=== PATIENT | male | born 1980 | race Caucasian/White ===

== ENCOUNTER 2016-05-05 15:00 | Outpatient (RCR) | payer MEDICAID | END 2016-05-06 | LOC: M OUTALCOH 15:00 | PROVIDERS: ATTEND Psychiatry & Neurology Psychiatry | DX: F11.20 Opioid dependence, uncomplicated (principal); F11.10 Opioid abuse, uncomplicated; F12.10 Cannabis abuse, uncomplicated ==

== ENCOUNTER → 2016-06-03 | Outpatient (RCR) | payer MEDICAID | LOC: M OUTALCOH 05-12 11:22 | PROVIDERS: ATTEND Psychiatry & Neurology Psychiatry | DX: F11.20 Opioid dependence, uncomplicated (principal); F11.10 Opioid abuse, uncomplicated; F12.10 Cannabis abuse, uncomplicated ==

== ENCOUNTER → 2016-06-04 | Outpatient (REF) | payer MEDICAID, OTHER | LOC: M SFHCPLAZ 10:20 | PROVIDERS: ATTEND Family Medicine | DX: R36.9 Urethral discharge, unspecified (principal) ==

== ENCOUNTER 2016-07-03 15:00 | Outpatient (RCR) | payer MEDICAID | END 2016-07-04 | LOC: M OUTALCOH 15:00 | PROVIDERS: ATTEND Psychiatry & Neurology Psychiatry | DX: F11.10 Opioid abuse, uncomplicated (principal); F11.20 Opioid dependence, uncomplicated; F12.10 Cannabis abuse, uncomplicated ==

== ENCOUNTER 2016-07-28 09:00 | Outpatient (RCR) | payer MEDICAID | END 2016-08-03 | LOC: M OUTALCOH 09:00 | PROVIDERS: ATTEND Psychiatry & Neurology Psychiatry | DX: F11.10 Opioid abuse, uncomplicated (principal); F12.10 Cannabis abuse, uncomplicated ==

== ENCOUNTER 2016-08-29 10:31 | Outpatient (RCR) | payer MEDICAID | END 2016-09-03 | LOC: M OUTALCOH 10:31 | PROVIDERS: ATTEND Psychiatry & Neurology Psychiatry | DX: F11.10 Opioid abuse, uncomplicated (principal); F12.10 Cannabis abuse, uncomplicated ==

== ENCOUNTER 2016-09-25 10:10 | Outpatient (RCR) | payer MEDICAID | END 2016-10-03 | disposition home or self-care (01) | LOC: M OUTALCOH 10:10 | PROVIDERS: ATTEND Psychiatry & Neurology Psychiatry | DX: F11.10 Opioid abuse, uncomplicated (principal); F12.10 Cannabis abuse, uncomplicated ==

== ENCOUNTER 2016-10-20 16:00 | Outpatient (RCR) | payer MEDICAID | END 2016-11-03 | LOC: M OUTALCOH 16:00 | PROVIDERS: ATTEND Psychiatry & Neurology Psychiatry | DX: F11.20 Opioid dependence, uncomplicated (principal); F12.10 Cannabis abuse, uncomplicated ==

== ENCOUNTER 2016-11-24 10:53 | Outpatient (RCR) | payer MEDICAID | END 2016-12-04 | LOC: M OUTALCOH 10:53 | PROVIDERS: ATTEND Psychiatry & Neurology Psychiatry | DX: F11.10 Opioid abuse, uncomplicated (principal); F12.10 Cannabis abuse, uncomplicated ==

== ENCOUNTER 2017-01-01 16:00 | Outpatient (RCR) | payer MEDICAID | END 2017-01-03 | LOC: M OUTALCOH 16:00 | PROVIDERS: ATTEND Psychiatry & Neurology Psychiatry | DX: F11.10 Opioid abuse, uncomplicated (principal); F11.20 Opioid dependence, uncomplicated; F12.10 Cannabis abuse, uncomplicated ==

== ENCOUNTER 2017-02-05 16:00 | Outpatient (RCR) | payer MEDICAID | END 2017-03-05 | LOC: M OUTALCOH 16:00 | PROVIDERS: ATTEND Psychiatry & Neurology Psychiatry | DX: F11.20 Opioid dependence, uncomplicated (principal); F12.10 Cannabis abuse, uncomplicated ==

== ENCOUNTER 2017-03-17 16:00 | Outpatient (RCR) | payer MEDICAID | END 2017-04-05 | LOC: M OUTALCOH 16:00 | DX: F11.20 Opioid dependence, uncomplicated (principal); F12.10 Cannabis abuse, uncomplicated ==

== ENCOUNTER 2017-04-14 16:00 | Outpatient (RCR) | payer MEDICAID | END 2017-05-06 | LOC: M OUTALCOH 16:00 | DX: F11.20 Opioid dependence, uncomplicated (principal); F12.10 Cannabis abuse, uncomplicated ==

== ENCOUNTER → 2017-06-03 | Outpatient (RCR) | payer MEDICAID | LOC: M OUTALCOH 16:07 | DX: F11.20 Opioid dependence, uncomplicated (principal); F12.10 Cannabis abuse, uncomplicated ==

== ENCOUNTER 2017-07-07 16:19 | Outpatient (RCR) | payer MEDICAID | END 2017-08-03 | LOC: M OUTALCOH 16:19 | DX: F11.20 Opioid dependence, uncomplicated (principal); F12.10 Cannabis abuse, uncomplicated ==

== ENCOUNTER 2017-08-18 16:00 | Outpatient (RCR) | payer MEDICAID | END 2017-09-03 | LOC: M OUTALCOH 16:00 | DX: F11.20 Opioid dependence, uncomplicated (principal); F12.10 Cannabis abuse, uncomplicated ==

== ENCOUNTER 2017-12-31 15:53 | Outpatient (RCR) | payer MEDICAID | END 2018-01-03 | LOC: M OUTALCOH 15:53 | DX: F11.20 Opioid dependence, uncomplicated (principal); F12.10 Cannabis abuse, uncomplicated ==

== ENCOUNTER → 2018-03-24 | Outpatient (CLI) | payer OTHER ==
[2018-03-26 10:04] LABS: HEPATITIS B SURFACE ANTIBODY NEGATIVE (POSITIVE); HEPATITIS B SURFACE ANTIGEN NEGATIVE (NEGATIVE); HIV 1&2 SCREEN CENTAUR NEGATIVE (NEGATIVE)
[2018-04-05 14:11] LABS: HEPATITIS C QUANTITATION HCV Not Detected IU/mL (.)
== END ==
LOC: M LAB 16:54
PROVIDERS: ATTEND Physician Assistant Medical
DX: Z86.59 Personal history of other mental and behavioral disorders (principal); R76.8 Other specified abnormal immunological findings in serum

== ENCOUNTER → 2019-01-27 | Outpatient (CLI) | payer OTHER ==
[2019-01-27 10:56] LABS: APPEARANCE, URINE CLOUDY (CLEAR); BACTERIA, URINE AUTO 2+ (NEGATIVE); BILIRUBIN, URINE AUTO NEGATIVE (NEGATIVE); BLOOD, URINE BLOOD 3+ (NEGATIVE); COLOR, URINE AMBER (YELLOW); GLUCOSE, URINE (UA) AUTO NEGATIVE (NEGATIVE); KETONE, URINE AUTO NEGATIVE (NEGATIVE); LEUKOCYTE ESTERASE, URINE AUTO TRACE (NEGATIVE); MUCUS, URINE SMALL (NEGATIVE); NITRITE, URINE AUTO NEGATIVE (NEGATIVE); PROTEIN, URINE AUTO 2+ mg/dL (NEGATIVE); RBC, URINE AUTO TNTC /HPF (0-3); SPECIFIC GRAVITY URINE AUTO 1.028 (1.002-1.035); SQUAMOUS EPITHELIAL CELL UR AU 2 /HPF (0-6); UROBILINOGEN, URINE AUTO 0.2 mg/dL (0.0-2.0); WBC, URINE AUTO 48 /HPF (0-3)
[2019-01-27 11:35] LABS: BLOOD UREA NITROGEN 15 MG/DL (7-18); CALCIUM LEVEL 9.2 MG/DL (8.5-10.1); CARBON DIOXIDE LEVEL 28 MEQ/L (21-32); CHLORIDE LEVEL 107 MEQ/L (98-107); CREATININE FOR GFR 1.25 MG/DL (0.70-1.30); GLOMERULAR FILTRATION RATE > 60.0 (>60); GLUCOSE, FASTING 94 MG/DL (70-100); POTASSIUM SERUM 4.3 MEQ/L (3.5-5.1); SODIUM LEVEL 140 MEQ/L (136-145)
--- NOTE | 2019-01-27 12:40 | REP ---
RENAL ULTRASOUND: Real-time sonographic evaluation of the kidneys performed. The kidneys are normal in size and echotexture, right kidney measuring 11.1 x 4.1 x 6.1 cm and left kidney 12.5 x 5.3 x 6.4 cm. There is mild right hydronephrosis with no left hydronephrosis. Possible 7 mm calculus is seen in the lower pole of the right kidney. Possible two calculi are also seen in lower pole left kidney 4-5 mm in diameter. There is a cyst in the upper pole of the right kidney 2.3 cm in diameter. There is a cyst with thin septations in the mid left kidney laterally 3 cm in diameter with two smaller cysts in the lower left kidney. There are bilateral ureteral jets in the urinary bladder with Doppler color evaluation. IMPRESSION: Mild right hydronephrosis. No left hydronephrosis. Bilateral renal cysts and possible renal calculi. There are bilateral ureteral jets in the urinary bladder with Doppler color evaluation. Electronically Signed by Nicholas Zhu MD 01/29/2019 10:49 A
== END ==
LOC: M RAD 10:15
PROVIDERS: ATTEND Family Medicine
DX: N13.30 Unspecified hydronephrosis (principal); N28.1 Cyst of kidney, acquired

== ENCOUNTER → 2019-02-11 | Outpatient (CLI) | payer OTHER ==
--- NOTE | 2019-02-11 19:30 | REP ---
CT of the abdomen and pelvis for renal calculi: Comparison is 02/07/2011. There are two nonobstructive right renal calculi, one at the mid pole posterior medially in the other in the lower pole each measure approximately 3 mm in diameter. There are two nonobstructive left renal calculi, one at the mid pole and the other at the lower pole measuring approximately 3 - 5 mm in diameter. There is a right renal upper pole cyst measuring 3 cm in diameter. This measured 1.7 cm previously. There is a left renal mid pole cyst measuring 3.2 cm in diameter. This measured 1.3 cm previously. There is no hydronephrosis or perinephric stranding. The visualized lung walsh are unremarkable. The unenhanced hepatic parenchyma, gallbladder, pancreas, spleen, adrenals, abdominal aorta, bowel and mesentery are unremarkable. Pelvis: The appendix is unremarkable. The prostate is enlarged. This is unchanged. There are prostatic of this as previously. The bladder is unremarkable. There is no adenopathy or ascites. There is descending colon and sigmoid colon diverticulosis without diverticulitis. Impression: Bilateral nonobstructive renal calculi as described. Bilateral renal cysts as described. No hydronephrosis. Prostate is enlarged and there are prostatic of this. This is unchanged. Diverticulosis without diverticulitis. Electronically Signed by Nicholas Meneses MD 02/11/2019 07:22 P
== END ==
LOC: M RAD 16:56
PROVIDERS: ATTEND Nurse Practitioner Women's Health
DX: K57.30 Diverticulosis of large intestine without perforation or abscess without bleeding (principal); N28.1 Cyst of kidney, acquired; N20.0 Calculus of kidney

== ENCOUNTER 2019-06-09 00:10 | Emergency (ER) | payer OTHER ==
[~2019-06-09] VITALS: Ht 170.2 cm; Wt 80.8 kg
[2019-06-09] MEDS ORDERED: UNIS25TA3 PO (00:27)
[2019-06-09] MEDS ORDERED: KETOROLAC 30 MG/ML VIAL (J1885) IV ONE (00:45)
[2019-06-09] MEDS ORDERED: NS 1,000 ML IV ONE (00:45)
[2019-06-09] MEDS ORDERED: TAMSULOSIN 0.4 MG CAP PO ONE (00:45)
[2019-06-09 01:02] LABS: BASO # 0.1 10^3/uL (0.0-0.2); BASO % 0.6 % (0.0-1.0); EOS # 0.2 10^3/uL (0.0-0.5); EOS % 1.8 % (0.0-3.0); HEMATOCRIT 49.2 % (42.0-52.0); HEMOGLOBIN 16.8 g/dl (13.5-17.5); LYMPH # 2.5 10^3/uL (1.5-5.0); LYMPH % 30.7 % (24.0-44.0); MEAN CORPUSCULAR HEMOGLOBIN 30.8 pg (27.0-33.0); MEAN CORPUSCULAR HGB CONC 34.1 g/dl (32.0-36.5); MEAN CORPUSCULAR VOLUME 90.3 fl (80.0-96.0); MONO # 0.7 10^3/uL (0.0-0.8); MONO % 8.4 % (0.0-5.0); NEUTROPHILS # 4.8 10^3/uL (1.5-8.5); NEUTROPHILS % 58.3 % (36.0-66.0); PLATELET COUNT, AUTOMATED 146 10^3/uL (150-450); RED BLOOD COUNT 5.45 10^6/uL (4.30-6.10); WHITE BLOOD COUNT 8.3 10^3/uL (4.0-10.0)
[2019-06-09] MEDS ORDERED: ACET-683 PO (01:12)
[2019-06-09 01:28] LABS: ALBUMIN 3.9 GM/DL (3.2-5.2); BILIRUBIN,DIRECT 0.1 MG/DL (0.0-0.2); BILIRUBIN,TOTAL 0.5 MG/DL (0.2-1.0); TOTAL PROTEIN 6.7 GM/DL (6.4-8.2)
--- NOTE | 2019-06-09 01:39 | REPVR ---
PROCEDURE INFORMATION: Exam: CT Abdomen And Pelvis Without Contrast Exam date and time: 06/09/2019 12:44 AM Age: 38 years old Clinical indication: Abdominal pain; Flank; Right; Additional info: Right flank pain, HX stones TECHNIQUE: Imaging protocol: Computed tomography of the abdomen and pelvis without contrast. Radiation optimization: All CT scans at this facility use at least one of these dose optimization techniques: automated exposure control; mA and/or kV adjustment per patient size (includes targeted exams where dose is matched to clinical indication); or iterative reconstruction. COMPARISON: CT ABD PELVIS W/O CONTRAST 02/11/2019 5:12 PM FINDINGS: Lungs: No suspicious mass or airspace process in the visualized lung bases. Liver: Noncontrast liver shows no obvious lesion. Gallbladder and bile ducts: Gallbladder is present and shows no evidence of gallstone. Pancreas: Noncontrast pancreas shows no obvious mass or adjacent fluid. Spleen: Noncontrast spleen shows no obvious focal deformity. Adrenals: Adrenal glands are normal in appearance. Kidneys and ureters: Left kidney demonstrates a posterior 3 cm simple fluid density lesion consistent with a cyst, and an anterior lower pole 3 cm simple fluid density cyst. Nonobstructive left renal stone is also present. Right kidney demonstrates nonobstructive calculi and mild right hydroureteronephrosis, secondary to a right UVJ stone measuring 5 x 4 mm.. Stomach and bowel: No evidence of small bowel obstruction. No evidence of acute diverticulitis. Appendix: Normal caliber appendix is identified, with no adjacent inflammation. Intraperitoneal space: No pneumoperitoneum. Vasculature: No aortic aneurysm. Lymph nodes: No enlarged lymph nodes. Bladder: Bladder is under distended, giving it a somewhat thick-walled appearance. Reproductive: Dystrophic prostate calcifications are noted. Bones/joints: Bony structures show no acute fracture or destructive process. Soft tissues: Fat containing umbilical hernia is present. IMPRESSION: 1. Mild right hydroureteronephrosis secondary to a 5 x 4 mm right UVJ stone. Nonobstructive bilateral renal calculi are also present. 2. Left renal simple fluid density cysts which, based upon their density, require no follow-up. These were demonstrated on ultrasound to be cysts. Electronically signed by: Alonso Chilel On 06/09/2019 01:39:03 AM
[2019-06-09] MEDS ORDERED: FLOM0.4C39 PO (01:50)
[2019-06-09 01:51] VITALS: BP 115/76
== END 2019-06-09 01:59 | disposition home or self-care (01) ==
LOC: M ED 00:10
DX: N13.30 Unspecified hydronephrosis (principal); N20.1 Calculus of ureter; Z88.0 Allergy status to penicillin; F17.210 Nicotine dependence, cigarettes, uncomplicated
CPT/HCPCS: 74176; 80047; 80076; 81001; 83690; 85025; 96361; 96374; 99284; J1885

== ENCOUNTER → 2019-06-22 | Outpatient (REF) | payer OTHER ==
[~2019-06-22] MED LIST: ACET-683 PO; FLOM0.4C39 PO; UNIS25TA3 PO
== END ==
LOC: M SMT 12:56
PROVIDERS: ATTEND Nurse Practitioner Women's Health
DX: N20.1 Calculus of ureter (principal)

== ENCOUNTER → 2020-04-12 | Outpatient (CLI) | payer OTHER | LOC: M LABSMTC 13:44 | PROVIDERS: ATTEND Family Medicine | DX: Z20.822 Contact with and (suspected) exposure to COVID-19 (principal) ==

== ENCOUNTER → 2022-03-21 | Outpatient (CLI) | payer OTHER ==
[2022-03-21 10:48] LABS: HEMATOCRIT 49.6 % (42.0-52.0); HEMOGLOBIN 16.7 g/dl (13.5-17.5); MEAN CORPUSCULAR HEMOGLOBIN 30.9 pg (27.0-33.0); MEAN CORPUSCULAR VOLUME 91.9 fl (80.0-96.0); WHITE BLOOD COUNT 5.3 10^3/uL (4.0-10.0)
[2022-03-21 10:49] LABS: BASO # 0.1 10^3/uL (0.0-0.2); BASO % 0.9 % (0.0-1.0); EOS # 0.1 10^3/uL (0.0-0.5); EOS % 1.9 % (0.0-3.0); LYMPH # 1.7 10^3/uL (1.5-5.0); LYMPH % 31.7 % (24.0-44.0); MEAN CORPUSCULAR HGB CONC 33.7 g/dl (32.0-36.5); MONO # 0.5 10^3/uL (0.0-0.8); MONO % 9.4 % (2.0-8.0); NEUTROPHILS % 55.9 % (36.0-66.0); PLATELET COUNT, AUTOMATED 157 10^3/uL (150-450)
[2022-03-21 11:25] LABS: ALBUMIN 3.9 G/DL (3.2-5.2); ALKALINE PHOSPHATASE 66 U/L (46-116); ALT/SGPT 32 U/L (7.0-40); AST/SGOT 18 U/L (<34); BILIRUBIN,TOTAL 0.5 MG/DL (0.3-1.2); BLOOD UREA NITROGEN 16 MG/DL (9-23); CALCIUM LEVEL 8.8 MG/DL (8.5-10.1); CARBON DIOXIDE LEVEL 24 MMOL/L (20-31); CHLORIDE LEVEL 107 MMOL/L (98-107); CHOLESTEROL LEVEL 183 MG/DL (<200); CHOLESTEROL RISK RATIO 4.65 (<5); CREATININE FOR GFR 0.91 MG/DL (0.70-1.30); GLOMERULAR FILTRATION RATE > 60.0 (>60); GLUCOSE, FASTING 81 MG/DL (60-100); HDL CHOLESTEROL 39.3 MG/DL (>40); LDL CHOLESTEROL 129.3 MG/DL (<100); NON-HDL-C 144 MG/DL; POTASSIUM SERUM 4.6 MMOL/L (3.5-5.1); SODIUM LEVEL 141 MMOL/L (136-145); THYROID STIMULATING HORMONE 2.918 uIU/ML (0.55-4.78); TOTAL PROTEIN 6.8 G/DL (5.7-8.2); TRIGLYCERIDES LEVEL 72 MG/DL (<150)
[2022-03-21 11:27] LABS: TOTAL 25(OH) VITAMIN D 28.1 NG/ML (20.0-100.0)
== END ==
LOC: M PLALAB 08:08
PROVIDERS: ATTEND Physician Assistant
DX: Z13.220 Encounter for screening for lipoid disorders (principal); F32.A Depression, unspecified

== ENCOUNTER → 2022-09-15 | Outpatient (REF) | payer OTHER ==
[2022-09-15 14:14] LABS: APPEARANCE, URINE MANUAL CLEAR (CLEAR); BILIRUBIN, URINE MANUAL NEGATIVE (NEGATIVE); BLOOD URINE MANUAL NEGATIVE (NEGATIVE); COLOR, URINE MANUAL YELLOW (YELLOW); GLUCOSE, URINE (UA) MANUAL NEGATIVE (NEGATIVE); KETONE, URINE MANUAL NEGATIVE (NEGATIVE); LEUKOCYTE ESTERASE, URINE MAN POSITIVE (NEGATIVE); NITRITE, URINE MANUAL NEGATIVE (NEGATIVE); PROTEIN, URINE MANUAL NEGATIVE (NEGATIVE); SPECIFIC GRAVITY,URINE MANUAL 1.025 (1.002-1.035); UROBILINOGEN, URINE MANUAL NORMAL (NORMAL)
[2022-09-15 14:53] LABS: BACTERIA, URINE SMALL AMOUNT; CALCIUM OXALATE CRYSTALS,URINE SMALL AMOUNT /hpf; HYALINE CAST, URINE NONE SEEN /lpf (0-1); SQUAMOUS EPITHELIAL CELL URINE SMALL AMOUNT /hpf (SMALL AMT)
[2022-09-15 14:54] LABS: AMORPHOUS SEDIMENT, URINE MOD AMOUNT (NEGATIVE)
[2022-09-16 00:11] LABS: GC DNA AMPLIFICATION NEGATIVE (NEGATIVE)
== END ==
LOC: M SFHCPLAZ 12:59
PROVIDERS: ATTEND Physician Assistant Medical
DX: R31.0 Gross hematuria (principal); Z72.51 High risk heterosexual behavior

== ENCOUNTER → 2022-09-26 | Outpatient (CLI) | payer OTHER | LOC: M RAD 06:23 | PROVIDERS: ATTEND Physician Assistant Medical | DX: N20.0 Calculus of kidney (principal); Q61.02 Congenital multiple renal cysts ==